=== PATIENT | female | born 1950 | race Two or more races ===

== ENCOUNTER 2024-05-22 09:45 | Inpatient (IN) | payer OTHER ==
[~2024-05-22] VITALS: Ht 157.5 cm; Wt 63.5 kg
[2024-05-22 14:48] VITALS: BP 155/82
[2024-05-22] MEDS ORDERED: DILTIAZEM ER120 M2 PO (14:49)
[2024-05-22] MEDS ORDERED: CLONAZEPAM2 MG PO ×2 (14:50→14:51)
[2024-05-22] MEDS ORDERED: ZESTRIL40 M1 PO (14:50)
[2024-05-22] MEDS ORDERED: CLONAZEPAM0.5 MG PO (14:53)
[2024-05-27] MEDS ORDERED: BUPIVACAINE HCL/PF 0.25% 30ML VIAL InF ONE (10:00)
[2024-05-27] MEDS ORDERED: HEMOSTATIC MATRIX 1 KIT KIT TOP ONE (10:00)
[2024-05-27] MEDS ORDERED: DIBUCAINE 30 GM TUBE RECTAL ONE (10:00)
[2024-05-27] MEDS ORDERED: LIDOCAINE HCL 1%/EPINEPHRINE 20ML VIAL IJ ONE (10:00)
[2024-05-27] MEDS ORDERED: POVIDONE-IODINE 118 ML BOTT TOP ONE ×2 (10:00)
[2024-05-27] MEDS ORDERED: CEFTRIAXONE SODIUM 2,000 MG VIAL IV ONE (10:15)
[2024-05-27] MEDS ORDERED: METRONIDAZOLE/SODIUM CHLORIDE 500 MG/100 ML PIGGYBACK IV ONE (10:15)
[2024-05-27] MEDS ORDERED: SUGAMMADEX SODIUM 200 MG/2 ML VIAL IV ONE (10:30)
[2024-05-27] MEDS ORDERED: 0.9 % SODIUM CHLORIDE 1,000 ML IV SCH (12:00)
[2024-05-27] MEDS ORDERED: MORPHINE SULFATE 4 MG/ML CARTRIDGE IV PRN (12:00)
[2024-05-27] MEDS ORDERED: ONDANSETRON HCL 2 MG/ML VIAL IV PRN (12:00)
[2024-05-27] MEDS ORDERED: OxyCODONE HCL 5 MG TABLET (ROXICODONE) PO PRN (12:00)
[2024-05-27] MEDS ORDERED: MORPHINE SULFATE 4 MG/ML VIAL IV ONE (12:45)
[2024-05-27] MEDS ORDERED: HYOSCYAMINE SULFATE 0.125 MG TAB.SUBL SL SCH (13:00)
[2024-05-27 13:30] VITALS: BP 155/80; O2SAT 95
[2024-05-27 13:36] LABS: HEMOGLOBIN 14.2 g/dL (12.0-15.00); MEAN CELL VOLUME 91.9 fL (80.00-100.00); MEAN CORPUSCULAR HEMOGLOBIN 30.3 pg (27.00-32.0); PLATELET COUNT 177 K/uL (150-450); RED BLOOD COUNT 4.68 M/uL (4.00-6.00); RED CELL DISTRIBUTION WIDTH 14.5 % (11.5-14.5)
[2024-05-27] MEDS ORDERED: ACETAMINOPHEN 500 MG GEL..CAP PO SCH (14:00)
[2024-05-27 15:56] VITALS: BP 136/70; O2SAT 98
[2024-05-27] MEDS ORDERED: POLYETHYLENE GLYCOL 3350 17 GM BLIST.PACK PO SCH (17:00)
[2024-05-27] MEDS ORDERED: METOCLOPRAMIDE HCL 5 MG/ML VIAL IV SCH (17:00)
[2024-05-27] MEDS ORDERED: FAMOTIDINE/PF 20 MG/2 ML VIAL IV PUSH SCH (21:00)
[2024-05-27] MEDS ORDERED: CELECOXIB 200 MG CAPSULE PO SCH (21:00)
[2024-05-28 00:41] VITALS: BP 107/62; O2SAT 96
[2024-05-28 06:18] LABS: HEMOGLOBIN 12.9 g/dL (12.0-15.00); MEAN CELL VOLUME 91.9 fL (80.00-100.00); MEAN CORPUSCULAR HEMOGLOBIN 31.1 pg (27.00-32.0); MEAN CORPUSCULAR HGB CONC 33.9 g/dl (32.0-36.0); PLATELET COUNT 158 K/uL (150-450); RED BLOOD COUNT 4.13 M/uL (4.00-6.00); RED CELL DISTRIBUTION WIDTH 14.2 % (11.5-14.5)
[2024-05-28 06:44] LABS: ALBUMIN 3.1 gm/dL (3.4-5.0); CALCIUM 8.5 mg/dL (8.5-10.1); CREATININE SERUM 0.96 mg/dL (0.55-1.02); GFR 56.51; MAGNESIUM 1.8 mg/dL (1.8-2.4); PHOSPHOROUS 3.6 mg/dL (2.5-4.9); POTASSIUM 3.64 mEq/L (3.5-5.1)
[2024-05-28 08:00] VITALS: BP 115/65; O2SAT 96
[2024-05-28] MEDS ORDERED: INTESTINEX680 M1 PO (08:51)
[2024-05-28] MEDS ORDERED: LEVSIN/SL0.125 MG SL (08:51)
[2024-05-28] MEDS ORDERED: LACTOBACILLUS ACIDOPHILUS 1 CAP CAP PO SCH (09:00)
[2024-05-28] MEDS ORDERED: LISINOPRIL 40 MG TABLET PO SCH (09:00)
[2024-05-28] MEDS ORDERED: ENOXAPARIN SODIUM 40 MG/0.4 ML SYRINGE SUBCUTANEO SCH (17:00)
[2024-05-29] MEDS ORDERED: ENOXAPARIN SODIUM 40 MG/0.4 ML SYRINGE SUBCUTANEO SCH (09:00)
== END 2024-05-28 14:12 | disposition home or self-care (01) | DRG 395 ==
LOC: O/R 05-27 06:16 → SURG 05-27 09:45
PROVIDERS: ADMIT Surgery; ATTEND Surgery
PROC: 3E0T3BZ Introduction of Anesthetic Agent into Peripheral Nerves and Plexi, Percutaneous Approach (ICD-10-PCS; 2024-05-27)
PROC: 0DBP8ZZ Excision of Rectum, Via Natural or Artificial Opening Endoscopic (ICD-10-PCS; principal; 2024-05-27 14:15)
DX: D12.8 Benign neoplasm of rectum (principal); Z20.822 Contact with and (suspected) exposure to COVID-19
CPT/HCPCS: 0184T; 64430